=== PATIENT | male | born 1950 | race Caucasian/White ===

== ENCOUNTER 2024-10-21 06:15 | Day surgery (SDC) | payer MEDICARE, SELFPAY | END 2024-10-21 15:07 | disposition home or self-care (01) | LOC: GI 06:15 | PROVIDERS: ATTENDING PHYSICIAN Specialist; FAMILY PHYSICIAN Family Medicine | DX: Z12.11 Encounter for screening for malignant neoplasm of colon (principal); Z86.0101 Personal history of adenomatous and serrated colon polyps; K64.8 Other hemorrhoids; K57.30 Diverticulosis of large intestine without perforation or abscess without bleeding; D12.0 Benign neoplasm of cecum | CPT/HCPCS: 45385; 45381; 88305 ==